=== PATIENT | male | born 1950 | race Caucasian/White ===

== ENCOUNTER 2025-07-07 16:28 | Emergency (ER) | payer OTHER ==
[~2025-07-07] VITALS: Ht 177.8 cm; Wt 95.0 kg
[2025-07-07 16:32] VITALS: O2SAT 95
[2025-07-07 18:05] LABS: BASOPHILS % 0.3 % (0.0-2.0); EOSINOPHILS % 2.1 % (0.0-5.0); HEMATOCRIT. 32.6 % (42.0-52.0); HEMOGLOBIN. 11.2 g/dL (14.0-18.0); LYMPHOCYTES % 13.8 % (20.0-50.0); MEAN PLATELET VOLUME 8.7 fl (7.4-10.4); MONOCYTES % 10.2 % (2.0-8.0); NEUTROPHILS % 73.6 % (40.0-76.0); PLATELET 105 x1000/uL (130-400); RED BLOOD CELL COUNT 3.19 mill/uL (4.7-6.1); RED CELL DISTRIBUTION WIDTH 16.4 % (11.6-14.6)
[2025-07-07 18:13] LABS: INR 1.1
[2025-07-07 18:17] LABS: UREA NITROGEN BLOOD 45 mg/dL (9-23)
[2025-07-07 18:18] LABS: ASPARTATE AMINOTRANSFERASE 132 IU/L (<34)
[2025-07-07 18:19] LABS: BILIRUBIN DIRECT 0.9 mg/dL (<=3.0); BILIRUBIN TOTAL 1.5 mg/dL (0.1-1.0); PROTEIN TOTAL 6.9 g/dL (6.0-8.3); TROPONIN I HIGH SENSITIVITY 31 ng/L (3.0-53)
[2025-07-07 18:29] LABS: CLARITY URINE CLOUDY (CLEAR); COLOR URINE YELLOW (YELLOW); GLUCOSE URINE NEGATIVE (NEGATIVE); KETONES URINE NEGATIVE (NEGATIVE); LEUKOCYTE ESTERASE URINE 2+ (NEGATIVE); NITRITE URINE NEGATIVE (NEGATIVE); OCCULT BLOOD URINE 1+ (NEGATIVE); PH URINE >=9.0 (4.5-8.0); PROTEIN URINE 3+ (NEGATIVE); SPECIFIC GRAVITY URINE 1.013 (1.005-1.030); UROBILINOGEN URINE 0.2 E.U./dL (0.2-1.0)
[2025-07-07 18:33] LABS: CREATININE 5.9 mg/dL (0.6-1.3)
[2025-07-07 18:47] LABS: BACTERIA URINE 3+; SQUAMOUS EPITHELIAL CELL URINE RARE /lpf (RARE/1+); WBC URINE 50-100 /hpf (0-2)
[2025-07-07 18:48] LABS: MUCUS URINE 2+ /lpf (NONE/TRACE)
[2025-07-07] MEDS ORDERED: CEFP200T14 MT (18:59)
[2025-07-07] MEDS: CEFTRIAXONE 1GM/50ML 50 ML IV ONE (19:07)
[2025-07-07 19:23] VITALS: BP 128/40; PULSE 87; RESP 17; TEMP 37.3; O2SAT 100
== END 2025-07-07 19:30 | disposition home or self-care (01) ==
LOC: ER 16:28 → CMPBEDREQ 07-08 07:53
DX: N39.0 Urinary tract infection, site not specified (principal); R53.1 Weakness; E11.22 Type 2 diabetes mellitus with diabetic chronic kidney disease; E87.8 Other disorders of electrolyte and fluid balance, not elsewhere classified; Z99.2 Dependence on renal dialysis
CPT/HCPCS: 99285; 96365; 71045; 80076; 80048; 81003; 83880; 83735; 85025; 85610; 85730; 87086; 87186; 84484; 87077; 36415; 93005; J0696